=== PATIENT | female | born 1970 | race Caucasian/White ===

== ENCOUNTER 2023-12-08 14:25 | Outpatient (AMB) | payer BC, SELFPAY ==
--- NOTE | 2023-12-08 14:37 | A.OFFVIS_ITS ---
Vital Signs 12/08/23 14:56 Height 5 ft 5 in Weight 133 lb 4 oz BMI 22.2 BP 112/66 Blood Pressure Location Lt brachial Position Sitting Respiration 16 Pulse 60 Pulse Source Pulse Oximeter Pulse Oximetry (%) 99 Oxygen Delivery Method Room Air Intake Visit Reasons: MIGRAINES AND SPINAL ISSUES Intake Note: Patient comes in for post-op appointment. Reports pain 410. Allergies gluten Allergy (Unknown, Verified 12/08/23 14:45) Unknown lidocaine Allergy (Unknown, Verified 12/08/23 14:45) Hives Tetracyclines Allergy (Unknown, Verified 12/08/23 14:45) Hives latex Adverse Reaction (Unknown, Verified 12/08/23 14:45) Hives meperidine Adverse Reaction (Unknown, Verified 12/08/23 14:45) Unknown seeds Allergy (Unknown, Uncoded 12/08/23 14:45) Unknown contrast dye Adverse Reaction (Unknown, Uncoded 12/08/23 14:45) Hives HPI Comments Details: Yasmine is very very pleasant 53 years old female who presents in my office with complains on classical migraine pain in the front of the head with aura, as well as arthritic pain multiple locations secondary to psoriatic arthritis. She reports pain in bilateral elbows pain in bilateral sacroiliac joints pain in bilateral knees and pain in bilateral feet. She reports that she can not sleep normally because of her pain but she can not do activities of daily living she can not take care of herself and she can not function normally. She is working full-time as a commercial artist lettering. She is self mobile. Weather changes aggravate her pain. Heat applications and cold applications as well as oral medications alleviate her pain. Her pain is most severe in the morning she also reports spasticity. She reports her pain is greatly decreased after working out. In terms of tissue damage her pain is pulsing, throbbing, pounding, jumping, flushing, shooting, kind of pain for migraines pinching cramping and crushing pain for toes hot burning scalding and searing pain on top of the feet and dull sore hurting aching heavy, tiring, exhausting, tight, squeezing, tearing pain for the rest of the locations. She never tried any injection for her pain. She told me that she afraid of the injections. She received physical therapy with [facility] with minimal pain relief and she received chiropractic manipulations with [facility] she reported some pain relief however short-lived. She had x-rays performed at [facility] however she denies that she ever had x-ray of the knees. She takes gabapentin daily for her pain. Past medical history significant for migraine headaches as above fatigue, dizziness, heart palpitations, anemia, asthma, arthritis, psoriasis. Her past surgical history significant for C-sections bunionectomy and tonsils and adenoids. Social history she is working individual she denies smoking cigarettes admits casual drinks once a week drinks 1 cup of coffee a day denies recreational drugs. Review of Systems Const Reports as per HPI ENT Reports Normal hearing present Card Reports as per HPI Resp Reports no additional complaints GI Reports no additional complaints Reports no additional complaints Musc Reports as per HPI Neuro Reports no additional complaints, Reports Normal hearing present, Denies Abnormal speech present, Denies confusion and Denies Sensory deficit (Neuro) Psych Reports no additional complaints and Denies confusion Physical Exam Vital Signs: Last Vital Signs Pulse 60 12/08/23 14:56 Resp 16 12/08/23 14:56 BP 112/66 12/08/23 14:56 Pulse Ox 99 12/08/23 14:56 Oxygen Delivery Method Room Air 12/08/23 14:56 BMI result Body Mass Index 22.2 Const General: no acute distress; No confusion Nutritional Appearance: obese morbidly obese Orientation/consciousness: patient oriented x3 and No confusion Eyes General: appearance normal, both eyes and all related structures Pupils: Equal, round and reactive pupils present EOM: EOMs intact bilaterally Neck Neck: Yes full ROM Chest Chest palpation & inspection: normal inspection of the chest Resp Effort & Inspection: normal respiratory effort, able to speak in complete sentences, normal respiratory pattern, no audible wheezes and no cough Cardio Jugular venous distension: no JVD GI Inspection: Yes normal to inspection Back/Spine/Pelvis Other: Dalton test is bilaterally positive, as well as pelvic compression test pelvic distraction test and Gaenslen test. Neuro General: patient oriented x3, gait normal and No confusion Cranial nerves: Yes CN's II-XII intact bilaterally, Yes Equal, round and reactive pupils present, Yes Normal hearing present and Yes Ability to bilaterally elevate shoulders present Speech: No Abnormal speech present Gait exam (Neuro): Normal gait present Motor exam (neuro): 5/5 motor strength present throughout Sensory Exam: No Sensory deficit (Neuro) Extrem General: No pedal edema Psych Speech and movement: Normal speech and movement present Affect: normal affect Attitude: cooperative Thought process: Normal thought process present Thought content: Normal thought content present Insight: Good insight present (Psych) Judgement: Good judgement present (Psych) Assessment & Plan Assessment & Plan (1) Osteoarthritis of left knee: Code(s): M17.12 - Unilateral primary osteoarthritis, left knee Category: Medical (2) Osteoarthritis of right knee: Code(s): M17.11 - Unilateral primary osteoarthritis, right knee Category: Medical (3) Sacroiliitis: Code(s): M46.1 - Sacroiliitis, not elsewhere classified Category: Medical (4) Pain of both sacroiliac joints: Code(s): M53.3 - Sacrococcygeal disorders, not elsewhere classified Category: Medical Plan I recommended her to have diagnostic bilateral sacroiliac joint injection to diagnose her pain and possibly open avenue for several modalities of treatment including steroid injections, sacroiliac joint stimulation, and SI joint fusion. I also recommended her to consider Aimovig or other calcitonin receptor antagonists to treat her pain. Other medications such as beta-blockers and calcium channel blockers maybe employed to treat her migraines. I also informed her that in this office she may receive treatment with buttocks injections however the medication might be not available via her his insurance. I will see this patient after diagnostic sacroiliac joint in injection to assess the diagnostic significance of this procedure and plan future treatment. Orders: Orders XR knee RT 3V Today M17.11 - Unilateral primary osteoarthritis, right knee XR knee LT 3V Today M17.12 - Unilateral primary osteoarthritis, left knee
[2023-12-08 14:56] VITALS: BP 112/66; PULSE 60; RESP 16; O2SAT 99; BMI 22.2
== END 2023-12-08 15:24 | disposition home or self-care (01) ==
PROVIDERS: PCP Family Medicine; Referring Provider Family Medicine; Visit Provider Anesthesiology
DX: M17.0 Bilateral primary osteoarthritis of knee (principal); M46.1 Sacroiliitis, not elsewhere classified; M53.3 Sacrococcygeal disorders, not elsewhere classified
CPT/HCPCS: 99203

== ENCOUNTER → 2023-12-08 14:25 | Outpatient (BNVA) | payer BC, SELFPAY | PROVIDERS: PCP Family Medicine; Referring Provider Family Medicine; Visit Provider Anesthesiology ==